=== PATIENT | female | born 1950 | race Caucasian/White ===

== ENCOUNTER 2021-02-16 13:16 | Outpatient (REF) | payer MEDICARE, SELFPAY ==
[2021-02-16 20:46] LABS: Hemoglobin A1C 5.9 % (<5.7)
[2021-02-16 20:51] LABS: Calculated LDL 123 mg/dL (<100); Cholesterol 233 mg/dL (<200); HDL Cholesterol 94 mg/dL (40-60); Triglyceride 80 mg/dL (<150)
== END 2021-02-16 13:17 | disposition home or self-care (01) ==
LOC: NCHCN 13:16
PROVIDERS: PCP Nurse Practitioner Family; Visit Provider Registered Nurse
DX: R73.03 Prediabetes (principal); E78.5 Hyperlipidemia, unspecified
CPT/HCPCS: 80061; 83036

== ENCOUNTER 2022-06-05 15:03 | Outpatient (REF) | payer MEDICARE, SELFPAY ==
[2022-06-05 21:16] LABS: Abs Immature Grans 0.01 10^3/uL (0.0-0.06); Absolute Basophil Count 0.05 10^3/uL (0.0-0.2); Absolute Lymphocyte Count 2.05 10^3/uL (1.2-3.4); Absolute Monocyte Count 0.52 10^3/uL (0.1-0.8); Absolute Neutrophil Count 4.27 10^3/uL (1.2-6.7); Basophils % 0.7; Eosinophils % 1.4; HCT 40.9 % (36.0-46.0); HGB 14.1 g/dL (11.2-15.7); Immature Grans % 0.1; Lymphocytes % 29.3; MCHC 34.5 % (32.0-36.0); MCV 87 fL (80-95); MPV 12.7 fL (8.0-11.0); Monocytes % 7.4; Neutrophils % 61.1; Platelet Count 183 10^3/uL (130-400); RDW 13.9 % (11.7-14.6); RDW-SD 44.5 fL
[2022-06-05 21:24] LABS: Anion Gap 9.1 mmol/L (3-11); BUN 15 mg/dL (7-18); CO2 25.9 mmol/L (21.0-32.0); CREATININE 0.7 mg/dL (0.55-1.02); Calcium 9.1 mg/dL (8.5-10.1); Calculated LDL 118 mg/dL (<100); Chloride 106 mmol/L (98-107); Cholesterol 228 mg/dL (<200); Glucose 98 mg/dL (74-106); HDL Cholesterol 97 mg/dL (40-60); Sodium 141 mmol/L (136-145); TSH (W/Ref FT4) 0.78 uIU/mL (0.36-3.74); Triglyceride 69 mg/dL (<150)
[2022-06-05 21:43] LABS: Hemoglobin A1C 5.8 % (<5.7)
== END 2022-06-05 15:04 | disposition home or self-care (01) ==
LOC: NCHCN 15:03
PROVIDERS: PCP Nurse Practitioner Family; Referring Provider Registered Nurse; Visit Provider Registered Nurse
DX: R73.03 Prediabetes (principal); E07.89 Other specified disorders of thyroid; R63.4 Abnormal weight loss
CPT/HCPCS: 80048; 80061; 83036; 84443; 85025

== ENCOUNTER 2023-05-09 14:51 | Outpatient (REF) | payer MEDICARE, MEDICAID, SELFPAY ==
[2023-05-09 16:26] LABS: Abs Immature Grans 0.01 10^3/uL (0.0-0.06); Absolute Basophil Count 0.02 10^3/uL (0.0-0.2); Absolute Eosinophil Count 0.09 10^3/uL (0.0-0.7); Absolute Lymphocyte Count 1.84 10^3/uL (1.2-3.4); Absolute Monocyte Count 0.38 10^3/uL (0.1-0.8); Absolute Neutrophil Count 3.28 10^3/uL (1.2-6.7); Basophils % 0.4; Eosinophils % 1.6; HCT 44.8 % (36.0-46.0); Immature Grans % 0.2; Lymphocytes % 32.7; MCH 29.5 pg (27.0-33.0); MCHC 33.5 % (32.0-36.0); MCV 88 fL (80-95); MPV 12.6 fL (8.0-11.0); Monocytes % 6.8; Neutrophils % 58.3; Platelet Count 187 10^3/uL (130-400); RBC 5.08 10^6/uL (3.93-5.22); RDW 14.8 % (11.7-14.6); WBC 5.62 10^3/uL (4.4-10.8)
[2023-05-09 16:27] LABS: ESR 6 mm/hr (0-30)
[2023-05-09 16:44] LABS: ALT 44 U/L (14-59); AST 31 U/L (15-37); Albumin 4.2 g/dL (3.4-5.0); Alkaline Phosphatase 72 U/L (46-116); BUN 12 mg/dL (7-18); Bilirubin, Total 0.6 mg/dL (0.2-1.0); C-Reactive Protein < 0.05 mg/dL (0.0-0.3); CREATININE 0.6 mg/dL (0.55-1.02); Calcium 9.6 mg/dL (8.5-10.1); Chloride 103 mmol/L (98-107); Glucose 103 mg/dL (74-106); Potassium 3.7 mmol/L (3.5-5.1); Sodium 141 mmol/L (136-145); TSH (W/Ref FT4) 1.15 uIU/mL (0.36-3.74); Total Protein 8.1 g/dL (6.4-8.2)
[2023-05-12 11:41] LABS: Hepatitis C Ab w Rflx HCV PCR Negative (Negative)
== END 2023-05-09 14:52 | disposition home or self-care (01) ==
LOC: NCHCN 14:51
PROVIDERS: PCP Nurse Practitioner Family; Visit Provider Registered Nurse
DX: R63.4 Abnormal weight loss (principal)
CPT/HCPCS: 80053; 85652; 86803; 84443; 85025; 86140

== ENCOUNTER 2023-06-26 19:05 | Outpatient (REF) | payer MEDICARE, MEDICAID, SELFPAY ==
[2023-06-26 21:23] LABS: Vitamin D 25 Total 49.8 ng/mL (30-100)
== END 2023-06-26 19:06 | disposition home or self-care (01) ==
LOC: NCHCN 19:05
PROVIDERS: PCP Nurse Practitioner Family; Visit Provider Registered Nurse
DX: M81.0 Age-related osteoporosis without current pathological fracture (principal)
CPT/HCPCS: 82306

== ENCOUNTER 2024-04-12 13:09 | Outpatient (REF) | payer MEDICARE, MEDICAID, SELFPAY ==
[2024-04-12 21:49] LABS: Abs Immature Grans 0.02 10^3/uL (0.0-0.06); Absolute Basophil Count 0.03 10^3/uL (0.0-0.2); Absolute Eosinophil Count 0.12 10^3/uL (0.0-0.7); Absolute Lymphocyte Count 1.67 10^3/uL (1.2-3.4); Absolute Monocyte Count 0.42 10^3/uL (0.1-0.8); Absolute Neutrophil Count 4.12 10^3/uL (1.2-6.7); Basophils % 0.5 %; Eosinophils % 1.9 %; HCT 44.5 % (36.0-46.0); HGB 14.6 g/dL (11.2-15.7); Immature Grans % 0.3 %; Lymphocytes % 26.2 %; MCH 29.2 pg (27.0-33.0); MCHC 32.8 % (32.0-36.0); MCV 89 fL (80-95); MPV 12.5 fL (8.0-11.0); Monocytes % 6.6 %; Neutrophils % 64.5 %; Platelet Count 185 10^3/uL (130-400); RDW 14.8 % (11.7-14.6); RDW-SD 48.5 fL; WBC 6.38 10^3/uL (4.4-10.8)
[2024-04-12 22:09] LABS: ALT 33 U/L (14-59); AST 24 U/L (15-37); Albumin 3.7 g/dL (3.4-5.0); Alkaline Phosphatase 74 U/L (46-116); Anion Gap 5.6 mmol/L (3-11); BUN 10 mg/dL (7-18); Bilirubin, Total 0.5 mg/dL (0.2-1.0); CO2 31.4 mmol/L (21.0-32.0); CREATININE 0.6 mg/dL (0.55-1.02); Calcium 9.2 mg/dL (8.5-10.1); Chloride 105 mmol/L (98-107); Estimated GFR 95.31 (mL/min/1.73m2); FREE T4 0.99 ng/dL (0.76-1.46); Glucose 78 mg/dL (74-106); Potassium 4.1 mmol/L (3.5-5.1); Sodium 142 mmol/L (136-145); TSH 1.43 uIU/Ml (0.36-3.74); Total Protein 7.1 g/dL (6.4-8.2)
== END 2024-04-12 13:10 | disposition home or self-care (01) ==
LOC: NCHCN 13:09
PROVIDERS: PCP Nurse Practitioner Family; Visit Provider Family Medicine
DX: R63.4 Abnormal weight loss (principal)
CPT/HCPCS: 80053; 84439; 84443; 85025

== ENCOUNTER 2024-07-15 16:08 | Outpatient (REF) | payer MEDICARE, MEDICAID, SELFPAY ==
--- NOTE | 2024-07-15 11:53 | SKI_PTH ---
PATIENT: Adriana Yeboah LOC: [facility]#:[id number] AGE/SX: 73/F ROOM: RE07/15/[address]: Belinda Cash : 1950 BED: DIS: 07/15/2024 SPEC #: [id number] RECD: 07/16/24 12:51 STATUS: IZABELLA REQ #: [id number] CAROLYN: 07/15/24 11:[address]: Belinda Cash DEPT: Surgical Specimen RECD BY: Misty Sevilla ENTERED: 07/16/24 12:56 SP TYPE: CHELLY RÍOS DR: Mary Esquivel Tissues: 1 - SKIN BIOPSY(SHAVE/PUNCH) Procedures: SKIN LEVEL 4 Comments: [id number]
== END 2024-07-15 16:09 | disposition home or self-care (01) ==
LOC: NCHCN 16:08
PROVIDERS: PCP Nurse Practitioner Family; Visit Provider Family Medicine
DX: L82.1 Other seborrheic keratosis
CPT/HCPCS: 88305